=== PATIENT | female | born 1990 | race African-American/Black ===

== ENCOUNTER 2021-04-26 12:35 | Emergency (ER) | payer MEDICAID ==
[~2021-04-26] VITALS: Ht 165.1 cm; Wt 64.0 kg
[2021-04-26 12:41] VITALS: BP 143/84
== END 2021-04-26 16:28 | disposition left against medical advice (07) ==
LOC: ER 12:35
DX: Z53.21 Procedure and treatment not carried out due to patient leaving prior to being seen by health care provider (principal)

== ENCOUNTER 2021-09-15 09:06 | Inpatient (IN) | payer MEDICAID ==
[~2021-09-15] VITALS: Ht 165.1 cm; Wt 65.8 kg
[2021-09-15] MEDS ORDERED: CARBOPROST TROMETHAMINE 250 MCG/ML AMPUL IM PRN (09:45)
[2021-09-15] MEDS ORDERED: LIDOCAINE HCL 1% 10 MG/ML 10ML VIAL IJ SCH (09:45)
[2021-09-15] MEDS ORDERED: IBUPROFEN 400MG TABLET PO PRN (10:00)
[2021-09-15] MEDS ORDERED: DEXT 5%/LR + PITOCIN 20UNITS/L 1,000 ML IV SCH ×2 (10:00)
[2021-09-15] MEDS ORDERED: METHYLERGONOVINE MALEATE 0.2 MG/ML IM PRN (10:00)
[2021-09-15] MEDS ORDERED: RHO(D) IMMUNE GLOBULIN 300 MCG/SYR IM PRN (10:00)
[2021-09-15] MEDS ORDERED: LACTATED RINGERS 1,000 ML IV SCH (10:00)
[2021-09-15] MEDS ORDERED: LANOLIN OINT 7GM TUBE TOP PRN (10:00)
[2021-09-15 10:18] LABS: BASOPHILS % 0.6 % (0.0-2.0); EOSINOPHILS % 0.1 % (0.0-5.0); HEMOGLOBIN. 11.1 g/dL (12.0-16.0); LYMPHOCYTES % 11.4 % (20.0-50.0); MEAN CORPUSCULAR HEMOGLOBIN 29.7 pg (28.0-32.0); MEAN CORPUSCULAR VOLUME 87.9 fL (81.0-99.0); MEAN PLATELET VOLUME 8.9 fl (7.4-10.4); NEUTROPHILS % 84.9 % (40.0-76.0); PLATELET 272 x1000/uL (130-400); RED BLOOD CELL COUNT 3.75 mill/uL (4.2-5.4); RED CELL DISTRIBUTION WIDTH 13.9 % (11.6-14.6)
[2021-09-15 10:31] LABS: CHLORIDE 107 mEq/L (98-107)
[2021-09-15 11:22] LABS: HEPATITIS B SURFACE ANTIGEN NEGATIVE
[2021-09-15 11:37] LABS: PARTIAL THROMBOPLASTIN TIME 24.9 sec (23.4-31.0); PROTHROMBIN TIME 10.5 sec (9.6-11.0)
[2021-09-15 12:00] VITALS: BP 126/74
[2021-09-15 12:51] LABS: CLARITY URINE TURBID (CLEAR); COLOR URINE RED (YELLOW); KETONES URINE NEGATIVE (NEGATIVE); LEUKOCYTE ESTERASE URINE 2+ (NEGATIVE); NITRITE URINE POSITIVE (NEGATIVE); OCCULT BLOOD URINE 3+ (NEGATIVE); PH URINE 6.5 (4.5-8.0); PROTEIN URINE 3+ (NEGATIVE); SPECIFIC GRAVITY URINE 1.016 (1.005-1.030); UROBILINOGEN URINE 0.2 E.U./dL (0.2-1.0)
[2021-09-15 13:15] LABS: OPIATES URINE SCREEN NEGATIVE (NEGATIVE)
[2021-09-15 13:16] LABS: *BARBITURATES SCREEN URINE NEGATIVE (NEGATIVE); *BENZODIAZEPINES SCREEN URINE NEGATIVE (NEGATIVE); *COCAINE SCREEN URINE NEGATIVE (NEGATIVE); METHADONE URINE SCREEN NEGATIVE (NEGATIVE)
[2021-09-15 13:18] LABS: CANNABINOID URINE SCREEN NEGATIVE (NEGATIVE); PHENCYCLIDINE URINE SCREEN NEGATIVE (NEGATIVE)
[2021-09-15 13:21] LABS: *AMPHETAMINES SCREEN URINE PRESUMTIVE POSITIVE (NEGATIVE)
[2021-09-15 20:00] VITALS: BP 108/71
[2021-09-15] MEDS: IBUPROFEN 800MG TABLET PO PRN (20:08)
[2021-09-16 03:00] VITALS: BP 102/62
[2021-09-16 05:53] LABS: BASOPHILS % 0.4 % (0.0-2.0); EOSINOPHILS % 0.6 % (0.0-5.0); HEMATOCRIT. 26.4 % (36.0-48.0); LYMPHOCYTES % 14.8 % (20.0-50.0); MEAN CORPUSCULAR HEMOGLOBIN 29.9 pg (28.0-32.0); MEAN PLATELET VOLUME 9.1 fl (7.4-10.4); MONOCYTES % 7.3 % (2.0-8.0); NEUTROPHILS % 76.9 % (40.0-76.0); PLATELET 246 x1000/uL (130-400)
[2021-09-16 07:30] VITALS: BP 103/79
[2021-09-16] MEDS: PRENATAL VIT/FE FUMARATE/FA TABLET PO SCH (08:31)
[2021-09-16] MEDS: IBUPROFEN 800MG TABLET PO PRN (13:49)
[2021-09-16 16:10] VITALS: BP 110/81
[2021-09-16 20:00] VITALS: BP 113/78
[2021-09-17 03:30] VITALS: BP 123/79
[2021-09-17] MEDS ORDERED: IBUP-2030 PO (06:49)
[2021-09-17 07:40] VITALS: BP 121/88
[2021-09-17] MEDS: PRENATAL VIT/FE FUMARATE/FA TABLET PO SCH (08:22)
[2021-09-17] MEDS: IBUPROFEN 800MG TABLET PO PRN (08:23)
== END 2021-09-17 11:10 | disposition home or self-care (01) | DRG 560 ==
LOC: 8 EST LDRP 09:06 → 8EST 12:00
PROVIDERS: ADMIT Obstetrics & Gynecology; ATTEND Obstetrics & Gynecology
PROC: 10E0XZZ Delivery of Products of Conception, External Approach (ICD-10-PCS; principal; 2021-09-15)
PROC: 0HQ9XZZ Repair Perineum Skin, External Approach (ICD-10-PCS; 2021-09-15)
DX: O77.0 Labor and delivery complicated by meconium in amniotic fluid (principal); Z37.0 Single live birth; O99.324 Drug use complicating childbirth; O70.0 First degree perineal laceration during delivery; Z3A.39 39 weeks gestation of pregnancy; Z20.822 Contact with and (suspected) exposure to COVID-19
CPT/HCPCS: 36415; 80053; 80305; 81003; 85025; 86592; 86703; 86762; 86850; 86900; 87340; 87426; J2590; J3490; J7120

== ENCOUNTER 2022-03-17 09:01 | Emergency (ER) | payer MEDICAID ==
[~2022-03-17] VITALS: Ht 165.1 cm; Wt 53.0 kg
[~2022-03-17 09:01] MED LIST: IBUP-2030 PO
[2022-03-17 09:15] VITALS: BP 116/64
[2022-03-17 10:15] LABS: BASOPHILS % 0.6 % (0.0-2.0); EOSINOPHILS % 0.4 % (0.0-5.0); HEMATOCRIT. 25.7 % (36.0-48.0); HEMOGLOBIN. 8.8 g/dL (12.0-16.0); LYMPHOCYTES % 15.2 % (20.0-50.0); MEAN CORPUSCULAR HEMOGLOBIN 31.7 pg (28.0-32.0); MEAN CORPUSCULAR VOLUME 92.2 fL (81.0-99.0); MEAN PLATELET VOLUME 7.2 fl (7.4-10.4); MONOCYTES % 7.7 % (2.0-8.0); NEUTROPHILS % 76.1 % (40.0-76.0); PLATELET 272 x1000/uL (130-400); RED BLOOD CELL COUNT 2.79 mill/uL (4.2-5.4); RED CELL DISTRIBUTION WIDTH 15.2 % (11.6-14.6)
[2022-03-17 10:21] LABS: INR 1.1; PROTHROMBIN TIME 11.6 sec (9.6-11.0)
[2022-03-17 10:22] LABS: CHLORIDE 107 mEq/L (98-107)
[2022-03-17 10:49] LABS: B-HCG QUANTITATIVE 42116 mIU/mL (<3)
[2022-03-17 11:03] LABS: CLARITY URINE CLEAR (CLEAR); COLOR URINE YELLOW (YELLOW); KETONES URINE NEGATIVE (NEGATIVE); LEUKOCYTE ESTERASE URINE NEGATIVE (NEGATIVE); NITRITE URINE NEGATIVE (NEGATIVE); OCCULT BLOOD URINE NEGATIVE (NEGATIVE); PH URINE 7.5 (4.5-8.0); PROTEIN URINE NEGATIVE (NEGATIVE); SPECIFIC GRAVITY URINE 1.012 (1.005-1.030); UROBILINOGEN URINE 0.2 E.U./dL (0.2-1.0)
[2022-03-17] MEDS ORDERED: CEFTRIAXONE SODIUM 250 MG/VIAL IM ONE (15:00)
[2022-03-17] MEDS ORDERED: DOXYCYCLINE HYCLATE 100MG CAPSULE PO ONE (15:00)
[2022-03-17] MEDS ORDERED: METHYLERGONOVINE MALEATE 0.2MG TABLET PO ONE (15:00)
[2022-03-17] MEDS ORDERED: METH PO (15:01)
[2022-03-17] MEDS ORDERED: DOXY100T2 MT (15:01)
== END 2022-03-17 16:40 | disposition home or self-care (01) ==
LOC: ER 12:34
DX: O03.9 Complete or unspecified spontaneous abortion without complication (principal); Z3A.15 15 weeks gestation of pregnancy
CPT/HCPCS: 36415; 76856; 80053; 81003; 81025; 84702; 85025; 85610; 86850; 86900; 86901; 88309; 96372; 99284; J0696